=== PATIENT | female | born 1955 ===

== ENCOUNTER 2016-06-24 01:51 | Emergency (ER) | payer SELFPAY ==
[2016-06-24] MEDS ORDERED: SODIUM CHLORIDE 0.9% 1,000 ML ONE (02:14)
[2016-06-24] MEDS ORDERED: ONDANSETRON 4 MG/2ML 2 ML VIAL ONE (02:14)
[2016-06-24 02:43] LABS: ALB/GLOB RATIO 1.1 (>1.0); CALCIUM 9.1 mg/dL (8.6-10.3)
[2016-06-24 03:07] LABS: ABSOLUTE NEUTROPHIL COUNT 4.5 K/mm3 (1.8-7.7); BASO # 0.1 K/mm3 (0.0-0.2); BASO % 0.5 % (0.2-1.0); EOS # 0.2 (0.0-0.5); EOS % 2.3 % (0.9-2.9); HEMATOCRIT 40.5 % (37.0-47.0); HEMOGLOBIN 13.2 gm/l (12.0-16.0); IMM NEUT% 0.2 % (0-1); LYMPH # 3.9 (1.0-4.8); LYMPH % 41.4 % (15-45); MEAN CELL VOLUME 84.2 fl (81.0-99.0); MEAN CORPUSCULAR HEMOGLOBIN 27.4 pg (27.0-31.0); MEAN CORPUSCULAR HGB CONC 32.6 g/dl (33.0-37.0); MEAN PLATELET VOLUME 11.8 fl (7.4-10.4); MONO # 0.7 (0.0-0.8); MONO % 7.2 % (4-12); NEUT % 48.4 % (43-75); PLATELET COUNT 210 K/mm3 (130-400)
[2016-06-24 03:23] LABS: URINE BILIRUBIN NEGATIVE (NEGATIVE); URINE BLOOD NEGATIVE (NEGATIVE); URINE GLUCOSE (UA) NEGATIVE (NEGATIVE); URINE LEUKOCYTE ESTERASE TRACE (NEGATIVE); URINE NITRITE NEGATIVE (NEGATIVE); URINE PROTEIN NEGATIVE (NEGATIVE); URINE UROBILINOGEN NORMAL (0-1 mg/dl)
[2016-06-24 03:25] LABS: URINE APPEARANCE CLEAR; URINE COLOR YELLOW
[2016-06-24 03:32] LABS: URINE BACTERIA 1+; URINE EPITHELIAL CELLS MODERATE /hpf; URINE OTHER FEW YEAST; URINE RBC 0-1 /hpf
== END 2016-06-24 03:49 | disposition home or self-care (01) ==
LOC: ED 01:51
DX: J11.1 Influenza due to unidentified influenza virus with other respiratory manifestations (principal); R53.1 Weakness; R11.2 Nausea with vomiting, unspecified; R05 Cough; I10 Essential (primary) hypertension; E11.9 Type 2 diabetes mellitus without complications; Z79.84 Long term (current) use of oral hypoglycemic drugs
CPT/HCPCS: 85025; 80053; 84484; 81001; 99283 ×2; 96374; 96361; 36415; 93005; J2405; J7030